=== PATIENT | female | born 1990 | race Caucasian/White ===

== ENCOUNTER 2017-07-04 06:26 | Day surgery (SDC) | payer OTHER ==
[2017-07-04] MEDS ORDERED: PROPOFOL 60 ML (08:44)
[2017-07-04] MEDS ORDERED: LIDOCAINE 2% (SDV) 5 ML INJ (08:44)
== END 2017-07-04 11:30 | disposition home or self-care (01) ==
LOC: GIL 06:26
DX: R19.4 Change in bowel habit (principal); K29.60 Other gastritis without bleeding; B96.81 Helicobacter pylori [H. pylori] as the cause of diseases classified elsewhere; K64.8 Other hemorrhoids; D12.5 Benign neoplasm of sigmoid colon
CPT/HCPCS: 43239; 84703; 87081; 88305